=== PATIENT | female | born 1995 | race American Indian/Alaskan Native ===

== ENCOUNTER 2016-09-19 18:41 | Inpatient (IN) | payer MEDICAID ==
[2016-09-19 19:28] LABS: Bilirubin,Urine NEG (Negative); Blood,Urine NEG (Negative); Ketones,Urine TR mg/dL (Negative); Leukocyte Esterase,Urine NEG (Negative); Mucus,Urine FEW /HPF; Nitrite,Urine NEG (Negative); Urobilinogen,Urine < 2.0 mg/dL (<2.0)
[2016-09-19] MEDS ORDERED: NACL 0.9% 1000 ML 1,000 ML IV ONE (19:38)
[2016-09-19 20:48] LABS: Basophils % (Auto) 0.4 % (0.0-1.8); Eosinophils % (Auto) 1.1 % (0.0-4.3); Hematocrit 31.5 % (30.3-42.9); Mean Corpuscular HGB Conc 32 % (30-34); Mean Corpuscular Volume 75 fl (79-97); Platelet Count 260 K/mm3 (140-440); Red Blood Count 4.21 M/mm3 (3.65-5.03); Red Cell Distribution Width 15.3 % (13.2-15.2); White Blood Count 5.5 K/mm3 (4.5-11.0)
[2016-09-19 20:49] LABS: Mean Corpuscular Hemoglobin 24 pg (28-32)
[2016-09-19 20:53] LABS: Alanine Aminotransferase 13 units/L (7-56); Albumin/Globulin Ratio 0.9 %; Alkaline Phosphatase 95 units/L (35-129); Anion Gap 19 mmol/L; Bilirubin,Total 0.2 mg/dL (0.1-1.2); Blood Urea Nitrogen 10 mg/dL (7-17); Carbon Dioxide 20 mmol/L (22-30); Chloride 102.3 mmol/L (98-107); Glucose 180 mg/dL (65-100); Potassium 4.3 mmol/L (3.6-5.0); Sodium 137 mmol/L (137-145); Total Protein 6.3 g/dL (6.3-8.2)
[2016-09-19] MEDS ORDERED: COLACE PO PRN (20:56)
[2016-09-19] MEDS ORDERED: TYLENOL PO PRN (20:56)
--- NOTE | 2016-09-19 21:16 | History and Physical Report ---
History of Present Illness Date of examination: 09/19/16 Chief complaint: patient c/o pain History of present illness: This is a 21 yo EDC 10/30/16 at 34+1 weeks comes into triage c/o pain. originally feeling pain in abdomen. no leaking no vb and good fm. Her course includes 1. large for gestational age 2. Morbid obesity 3. Hypothyroidism 4. pregestational diabetes 5. 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 denies: alcohol abuse (occasional drinker ) - Obstetrical History Expected Date of Delivery: 10/30/16 Actual Gestation: 34 Week(s) 1 Day(s) : 1 Para: 0 Hx # Term Pregnancies: 0 Number of Pregnancies: 0 Spontaneous Abortions: 0 Induced : 0 Number of Living Children: 0 Medications and Allergies Allergies Allergy/AdvReac Type Severity Reaction Status Date / Time No Known Allergies Allergy Verified 09/19/16 18:49 Home Medications Medication Instructions Recorded Confirmed Last Taken Type Vit-Fe Fumar-FA [ 1 tab PO QDAY 09/19/16 09/19/16 09/19/16 09: 00 History Vitamin] 1 Ranitidine HCl [Acid Control] 150 mg PO BID PRN 09/19/16 09/19/16 09/19/16 09: 00 History 1 Active Meds: Active Medications Acetaminophen (Tylenol) 650 mg PO Q4H PRN PRN Reason: Pain MILD(1-3)/Fever >100.5/BETTENCOURT Docusate Sodium (Colace) 100 mg PO Q12H PRN PRN Reason: Constipation Multivitamins/Iron/Calcium ( Vitamin) 1 each PO QDAY BEN Review of Systems All systems: negative Constitutional: weight gain (50+ pounds) Eyes: deferred Ears, nose, mouth and throat: deferred Respiratory: no shortness of breath, no dyspnea on exertion Breasts: deferred Gastrointestinal: abdominal pain, no nausea, no vomiting Genitourinary: no leakage of fluid Rectal Exam: deferred Integumentary: deferred - Vital Signs Vital signs: Vital Signs Pulse BP Pulse Ox 166 H 133/81 100 09/19/16 19:15 09/19/16 19:15 09/19/16 19:15 Temp Pulse Resp BP Pulse Ox 98.7 F 103 H 133/81 100 09/19/16 20:00 09/19/16 20:58 09/19/16 19:15 09/19/16 20:58 - Physical Exam Breasts: Positive: deferred Cardiovascular: Regular rate, Normal S1, Normal S2 Lungs: Positive: Clear to auscultation, Normal air movement Abdomen: Positive: normal appearance, soft, normal bowel sounds. Negative: distention, tenderness Genitourinary (Female): Positive: normal external genitalia, normal perenium Vulva: both: normal Uterus: Positive: enlarged Anus/Rectum: Positive: normal perianal skin Extremities: Positive: normal Deep Tendon Reflex Grade: Normal +2 - Obstetrical FHR: category 1 Results Result Diagrams: 09/19/16 20:15 09/19/16 20:15 Abnormal lab results 09/19/16 09/19/16 09/19/16 Range/Units 19:38 20:15 20:15 Hgb 10.0 L (10.1-14.3) gm/dl MCV 75 L (79-97) fl MCH 24 L (28-32) pg RDW 15.3 H (13.2-15.2) % Carbon Dioxide 20 L (22-30) mmol/L Creatinine 0.5 L (0.7-1.2) mg/dL Glucose 180 H (65-100) mg/dL POC Glucose 194 H (70-105) Albumin 3.0 L (3.9-5) g/dL All other labs normal. Assessment and Plan 21 yo at 34 weeks admitted for 24 hrs admit for elevated glucose, obesity, tachycardia, and non compliance 1. IV hydration -resolving tachycardia 2. labs CBC, cmp, thyroid panel, hgba1c 3. assessment US with BPP 4. continuous monitoring 5. consult to county home demonstration agent for diabetes 6. FS q2 7. Diabetic diet 2200 ADA 8. consult to medicine 9. consult to [facility] in am
[2016-09-19] MEDS ORDERED: D50W (25GM) IV PRN (21:36)
--- NOTE | 2016-09-19 21:40 | Consultation ---
History of Present Illness - Reason for Consult Consult date: 09/19/16 gestational diabetes mellitus, hypothyroidism Requesting physician: HOLLI LEMUS - History of Present Illness 21-year-old female presented CLAIMS REPRESENTATIVE for abdominal and back pain. She is in her third trimester . Patient stated she was diagnosed with borderline diabetes in the clinic. Patient didn't know any medical condition but on the chart but stated that hypothyroidism. REVIEW OF SYSTEMS: GENERAL: no weight change, no fatigue, no fever HEAD: no head ache EYES: no blurry vision, no acute visual loss EARS: no hearing loss, no discharge, no earache NOSE: no stuffiness, no sneezing, no discharge MOUTH, THROAT AND NECK: no bleeding gums, no sore throat, no swollen neck CARDIAC: no palpitations, no dyspnea on exertion, no orthopnea, no PND, no edema , no chest pain RESPIRATORY: no shortness of breath, no wheeze, no cough, no sputum, no hemoptysis, no asthma GI: no decreased appetite, no nausea, no vomiting, no dysphagia, no diarrhea, no constipation, + abdominal pain URINARY: no change in frequency, no urgency, no polyuria, no hematuria, no incontinence MUSCULOSKELETAL: no muscle weakness, no pain, no joint stiffness NEUROLOGIC: no loss of sensation/numbness, no tingling, no tremors, no weakness/ paralysis HEMATOLOGIC: no anemia, no easy bruising SKIN: no rashes ENDOCRINE: no heat/cold intolerance, no polyuria, no polydipsia, no thyroid problems, no diabetes PSYCHIATRIC: no anxiety, no depression, no suicidal ideations Past History Past Medical History: diabetes, hypothyroidism Past Surgical History: No surgical history Social history: single, smoking (former). denies: alcohol abuse (occasional drinker ) Family history: no significant family history Medications and Allergies Allergies Allergy/AdvReac Type Severity Reaction Status Date / Time No Known Allergies Allergy Verified 09/19/16 18:49 Home Medications Medication Instructions Recorded Confirmed Last Taken Type Vit-Fe Fumar-FA [ 1 tab PO QDAY 09/19/16 09/19/16 09/19/16 09: 00 History Vitamin] 1 Ranitidine HCl [Acid Control] 150 mg PO BID PRN 09/19/16 09/19/16 09/19/16 09: 00 History 1 Active Meds: Active Medications Acetaminophen (Tylenol) 650 mg PO Q4H PRN PRN Reason: Pain MILD(1-3)/Fever >100.5/BETTENCOURT Docusate Sodium (Colace) 100 mg PO Q12H PRN PRN Reason: Constipation Multivitamins/Iron/Calcium ( Vitamin) 1 each PO QDAY BEN Exam - Physical Exam Narrative exam: Not in cardiopulmonary distress. The patient appeared well nourished and normally developed. Vital signs as documented. Head exam is unremarkable. No scleral icterus . Neck is without jugular venous distension, thyromegaly, or carotid bruits. Lungs are clear to auscultation. Cardiac exam reveals regular rate and Rhythm. First and second heart sounds normal. No murmurs, rubs or gallops. Abdominal exam reveals normal bowel sounds, no masses, positive heart sound. Extremities mild ankle edema. 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 No focal weakness. - Constitutional Vitals: Temp Pulse Resp BP Pulse Ox 98.7 F 112 H 126/85 100 09/19/16 20:00 09/19/16 21:23 09/19/16 21:09 09/19/16 21:23 Results - Labs CBC & Chem 7: 09/19/16 20:15 09/19/16 20:15 Labs: Abnormal lab results 09/19/16 09/19/16 09/19/16 Range/Units 19:38 20:15 20:15 Hgb 10.0 L (10.1-14.3) gm/dl MCV 75 L (79-97) fl MCH 24 L (28-32) pg RDW 15.3 H (13.2-15.2) % Carbon Dioxide 20 L (22-30) mmol/L Creatinine 0.5 L (0.7-1.2) mg/dL Glucose 180 H (65-100) mg/dL POC Glucose 194 H (70-105) Albumin 3.0 L (3.9-5) g/dL Assessment and Plan Gestational DM - will put her on SSI - F/U A1c - Will do accu check and will start basal insulin based on the results Hx of hypothyroidism - follow with thyroid panel and will manage accordingly
--- NOTE | 2016-09-19 21:44 | Event Note ---
Date: 09/19/16 I have calculated her insulin dose in the third trimester using 0.9 U/Kg Total of 94 U based on 105 kg AM dose NPH 41 and R 20 PM dose NPH 15 and R 15
--- NOTE | 2016-09-20 07:12 | Admit Criteria Form ---
Admission Criteria Documentation: DIABETES IN Clinical Indications for Admission to Inpatient Care (Place "X" for any and all applicable criteria): Admission is indicated by presence of ALL of the following(1)(2)(3): [X]I. Diabetes is uncontrolled or needs urgent intervention as indicated by ANY ONE of the following: [ ]a) Ketoacidosis [ ]b) Hyperglycemia associated with volume depletion [X]c) Persistent hyperglycemia, unresponsive to outpatient intervention [ ]d) Vomiting not controlled by outpatient therapy [ ]e) Rapid initiation of metabolic control needed to improve maternal and outcome [ ]f) Hypoglycemia not readily reversed by outpatient or emergency department care [ ]II. Management at other levels of care (See General Criteria: Observation Care) is not feasible because of ANY ONE of the following: [ ]a) Condition was not adequately corrected with treatment at other levels of care. [ ]b) Treatment at other levels of care is not appropriate because of condition severity (eg, hyperosmolar coma). Extended stay beyond goal length of stay may be needed for(1)(3)(18): [ ]a) Underlying infection [ ]b) Unstable glycemic control, particularly in patients with pre-existing diabetes [ ]c) Continued hypovolemia, acidosis, or electrolyte correction(17) [ ]d) Persistent nausea and vomiting(2) [ ]e) Associated obstetric comorbidities (eg, labor, preeclampsia)(19) (20) The original [facility] content created by [facility] has been revised. The portions of the content which have been revised are identified through the use of italic text or in bold, and [facility] has neither reviewed nor approved the modified material. All other unmodified content is copyright [facility] [employer]. Please see references footnoted in the original [facility] edition 2016 Admission Criteria Met: Yes
[2016-09-20] MEDS ORDERED: PRENATAL VITAMIN PO SCH (10:00)
--- NOTE | 2016-09-20 13:50 | Progress Note ---
Assessment and Plan 21 yo at 34 weeks admitted for 24 hrs admit for elevated glucose, obesity, tachycardia, and non compliance 1. patient currently on insulin 2. await [facility] consult 3. await DM consultation 4. will consider d/c home tonight 5. resolved tachy with fluids Subjective - Subjective Date of service: 09/20/16 Principal diagnosis: obesity hypothyroidism, GDM Interval history: This is a 21 yo EDC 10/30/16 at 34+1 weeks comes into triage c/o pain. originally feeling pain in abdomen. no leaking no vb and good fm. Her course includes 1. large for gestational age 2. Morbid obesity 3. Hypothyroidism 4. pregestational diabetes 5. LSIL ob labs: B+ antibody neg H/H 13.8/41.4 pap lsil Rubella IMM RPR NR urine culture : + hep neg HIV neg PLT 312 HGB Electrophoresis AA Albaro neg chlam neg US 04/02/16 9.6 weeks single IUP MSAFP neg antoamy nl H//H 10.7/33.9 DM 168 PLT 307 09/06/16 ALLAN 10/30/16 EFW 4 poounds and 8 oz 52% flluid 13.62 closed cervix posterior placenta grade 3 Patient reports: movement normal, no new complaints, no loss of fluid, no vaginal bleeding, no contractions Objective - Vital Signs Vital Signs: Vital Signs - 12hr 09/20/16 09/20/16 09/20/16 01:47 01:48 01:52 Temperature Pulse Rate 94 H 96 H 95 H Respiratory Rate Blood Pressure 126/76 O2 Sat by Pulse 100 100 Oximetry 09/20/16 09/20/16 09/20/16 01:57 01:59 02:02 Temperature Pulse Rate 93 H 102 H Respiratory Rate Blood Pressure O2 Sat by Pulse 100 74 L 100 Oximetry 09/20/16 09/20/16 09/20/16 02:07 02:12 02:17 Temperature Pulse Rate 96 H 107 H 92 H Respiratory Rate Blood Pressure 118/61 O2 Sat by Pulse 100 100 100 Oximetry 09/20/16 09/20/16 09/20/16 02:22 02:27 02:32 Temperature Pulse Rate 100 H 90 103 H Respiratory Rate Blood Pressure O2 Sat by Pulse 100 100 100 Oximetry 09/20/16 09/20/16 09/20/16 02:37 02:42 02:47 Temperature Pulse Rate 106 H 90 109 H Respiratory Rate Blood Pressure O2 Sat by Pulse 99 99 100 Oximetry 09/20/16 09/20/16 09/20/16 02:48 02:52 02:57 Temperature Pulse Rate 107 H 89 92 H Respiratory Rate Blood Pressure 136/68 O2 Sat by Pulse 99 99 Oximetry 09/20/16 09/20/16 09/20/16 03:00 03:02 03:07 Temperature 97.6 F Pulse Rate 92 H 108 H Respiratory 20 Rate Blood Pressure O2 Sat by Pulse 100 100 Oximetry 09/20/16 09/20/16 09/20/16 03:12 03:17 03:22 Temperature Pulse Rate 102 H 90 92 H Respiratory Rate Blood Pressure 115/61 O2 Sat by Pulse 99 99 100 Oximetry 09/20/16 09/20/16 09/20/16 03:27 03:32 03:37 Temperature Pulse Rate 94 H 105 H 99 H Respiratory Rate Blood Pressure O2 Sat by Pulse 99 99 100 Oximetry 09/20/16 09/20/16 09/20/16 03:42 03:47 03:52 Temperature Pulse Rate 113 H 86 89 Respiratory Rate Blood Pressure 130/71 O2 Sat by Pulse 99 100 100 Oximetry 09/20/16 09/20/16 09/20/16 03:57 04:02 04:07 Temperature Pulse Rate 96 H 99 H 109 H Respiratory Rate Blood Pressure O2 Sat by Pulse 100 100 100 Oximetry 09/20/16 09/20/16 09/20/16 04:12 04:17 04:22 Temperature Pulse Rate 95 H 95 H 94 H Respiratory Rate Blood Pressure 107/60 O2 Sat by Pulse 100 100 100 Oximetry 09/20/16 09/20/16 09/20/16 04:27 04:32 04:37 Temperature Pulse Rate 104 H 101 H 88 Respiratory Rate Blood Pressure O2 Sat by Pulse 100 100 100 Oximetry 09/20/16 09/20/16 09/20/16 04:42 04:47 04:50 Temperature Pulse Rate 98 H 90 96 H Respiratory Rate Blood Pressure 103/57 O2 Sat by Pulse 98 98 82 L Oximetry 09/20/16 09/20/16 09/20/16 04:52 04:57 05:02 Temperature Pulse Rate 104 H 91 H 104 H Respiratory Rate Blood Pressure O2 Sat by Pulse 100 100 100 Oximetry 09/20/16 09/20/16 09/20/16 05:07 05:12 05:17 Temperature Pulse Rate 89 91 H 88 Respiratory Rate Blood Pressure 104/53 O2 Sat by Pulse 99 100 100 Oximetry 09/20/16 09/20/16 09/20/16 05:22 05:27 05:32 Temperature Pulse Rate 93 H 87 88 Respiratory Rate Blood Pressure O2 Sat by Pulse 100 100 100 Oximetry 09/20/16 09/20/16 09/20/16 05:37 05:42 05:47 Temperature Pulse Rate 86 81 87 Respiratory Rate Blood Pressure 126/58 O2 Sat by Pulse 99 98 98 Oximetry 09/20/16 09/20/16 09/20/16 05:52 05:57 06:31 Temperature Pulse Rate 80 91 H 100 H Respiratory Rate Blood Pressure O2 Sat by Pulse 98 98 89 Oximetry 09/20/16 09/20/16 09/20/16 06:36 06:41 06:43 Temperature Pulse Rate 94 H 97 H 99 H Respiratory Rate Blood Pressure O2 Sat by Pulse 100 100 90 Oximetry 09/20/16 09/20/16 09/20/16 06:46 06:51 06:56 Temperature Pulse Rate 88 91 H 91 H Respiratory Rate Blood Pressure O2 Sat by Pulse 100 100 100 Oximetry 09/20/16 09/20/16 09/20/16 07:01 07:06 07:11 Temperature Pulse Rate 92 H 84 85 Respiratory Rate Blood Pressure O2 Sat by Pulse 100 100 100 Oximetry 09/20/16 09/20/16 09/20/16 07:16 07:21 07:26 Temperature Pulse Rate 90 82 92 H Respiratory Rate Blood Pressure O2 Sat by Pulse 100 100 100 Oximetry 09/20/16 09/20/16 09/20/16 07:30 07:31 07:36 Temperature Pulse Rate 92 H 91 H 90 Respiratory Rate Blood Pressure 108/60 O2 Sat by Pulse 100 100 Oximetry 09/20/16 09/20/16 09/20/16 07:41 07:46 07:51 Temperature Pulse Rate 108 H 90 122 H Respiratory Rate Blood Pressure O2 Sat by Pulse 100 100 99 Oximetry 09/20/16 09/20/16 09/20/16 07:56 08:01 08:06 Temperature Pulse Rate 89 108 H 94 H Respiratory Rate Blood Pressure O2 Sat by Pulse 99 100 100 Oximetry 09/20/16 09/20/16 09/20/16 08:11 08:16 08:21 Temperature Pulse Rate 91 H 94 H 93 H Respiratory Rate Blood Pressure O2 Sat by Pulse 100 100 100 Oximetry 09/20/16 11:49 Temperature Pulse Rate 104 H Respiratory Rate Blood Pressure 118/72 O2 Sat by Pulse Oximetry - Exam Breasts: deferred, normal Cardiovascular: Regular rate, Normal S1, Normal S2 Lungs: Clear to auscultation, Normal air movement Abdomen: Present: normal appearance, soft, normal bowel sounds Uterus: Present: normal, firm FHR: category 1 - Labs Labs: Abnormal Labs 09/19/16 09/19/16 09/19/16 19:38 20:15 20:15 Hgb 10.0 L MCV 75 L MCH 24 L RDW 15.3 H Carbon Dioxide 20 L Creatinine 0.5 L Glucose 180 H POC Glucose 194 H Hemoglobin A1c Albumin 3.0 L 09/19/16 09/20/16 09/20/16 21:38 01:00 09:54 Hgb MCV MCH RDW Carbon Dioxide Creatinine Glucose POC Glucose 135 H 120 H Hemoglobin A1c 6.1 H Albumin Laboratory Results - last 24 hr 09/19/16 09/19/16 09/19/16 19:00 19:38 20:15 WBC 5.5 RBC 4.21 Hgb 10.0 L Hct 31.5 MCV 75 L MCH 24 L MCHC 32 RDW 15.3 H Plt Count 260 Lymph % (Auto) 22.1 [place] % (Auto) 7.1 Eos % (Auto) 1.1 Baso % (Auto) 0.4 Lymph # 1.2 [place] # 0.4 Eos # 0.1 Baso # 0.0 Seg Neutrophils % 69.3 Seg Neutrophils # 3.8 Sodium Potassium Chloride Carbon Dioxide Anion Gap BUN Creatinine Estimated GFR BUN/Creatinine Ratio Glucose POC Glucose 194 H Hemoglobin A1c Calcium Total Bilirubin AST ALT Alkaline Phosphatase Total Protein Albumin Albumin/Globulin Ratio TSH Free T4 Urine Color Shereen Urine Turbidity Clear Urine pH 6.0 Urine Protein 30 mg/dl Urine Glucose (UA) >=500 Urine Ketones Tr Urine Blood Neg Urine Nitrite Neg Urine Bilirubin Neg Urine Urobilinogen < 2.0 Ur Leukocyte Esterase Neg Urine WBC (Auto) 2.0 Urine RBC (Auto) 15.0 U Epithel Cells (Auto) 2.0 Calcium Oxalate Crystal 3+ Urine Mucus Few Blood Type Antibody Screen 09/19/16 09/19/16 09/19/16 20:15 21:38 21:38 WBC RBC Hgb Hct MCV MCH MCHC RDW Plt Count Lymph % (Auto) [place] % (Auto) Eos % (Auto) Baso % (Auto) Lymph # [place] # Eos # Baso # Seg Neutrophils % Seg Neutrophils # Sodium 137 Potassium 4.3 Chloride 102.3 Carbon Dioxide 20 L Anion Gap 19 BUN 10 Creatinine 0.5 L Estimated GFR > 60 BUN/Creatinine Ratio 20.00 Glucose 180 H POC Glucose Hemoglobin A1c 6.1 H Calcium 9.0 Total Bilirubin 0.2 AST 21 ALT 13 Alkaline Phosphatase 95 Total Protein 6.3 Albumin 3.0 L Albumin/Globulin Ratio 0.9 TSH 1.890 Free T4 0.96 Urine Color Urine Turbidity Urine pH Urine Protein Urine Glucose (UA) Urine Ketones Urine Blood Urine Nitrite Urine Bilirubin Urine Urobilinogen Ur Leukocyte Esterase Urine WBC (Auto) Urine RBC (Auto) U Epithel Cells (Auto) Calcium Oxalate Crystal Urine Mucus Blood Type Antibody Screen 09/19/16 09/20/16 09/20/16 21:39 01:00 06:00 WBC RBC Hgb Hct MCV MCH MCHC RDW Plt Count Lymph % (Auto) [place] % (Auto) Eos % (Auto) Baso % (Auto) Lymph # [place] # Eos # Baso # Seg Neutrophils % Seg Neutrophils # Sodium Potassium Chloride Carbon Dioxide Anion Gap BUN Creatinine Estimated GFR BUN/Creatinine Ratio Glucose POC Glucose 135 H 80 Hemoglobin A1c Calcium Total Bilirubin AST ALT Alkaline Phosphatase Total Protein Albumin Albumin/Globulin Ratio TSH Free T4 Urine Color Urine Turbidity Urine pH Urine Protein Urine Glucose (UA) Urine Ketones Urine Blood Urine Nitrite Urine Bilirubin Urine Urobilinogen Ur Leukocyte Esterase Urine WBC (Auto) Urine RBC (Auto) U Epithel Cells (Auto) Calcium Oxalate Crystal Urine Mucus Blood Type B POSITIVE Antibody Screen Negative 09/20/16 09:54 WBC RBC Hgb Hct MCV MCH MCHC RDW Plt Count Lymph % (Auto) [place] % (Auto) Eos % (Auto) Baso % (Auto) Lymph # [place] # Eos # Baso # Seg Neutrophils % Seg Neutrophils # Sodium Potassium Chloride Carbon Dioxide Anion Gap BUN Creatinine Estimated GFR BUN/Creatinine Ratio Glucose POC Glucose 120 H Hemoglobin A1c Calcium Total Bilirubin AST ALT Alkaline Phosphatase Total Protein Albumin Albumin/Globulin Ratio TSH Free T4 Urine Color Urine Turbidity Urine pH Urine Protein Urine Glucose (UA) Urine Ketones Urine Blood Urine Nitrite Urine Bilirubin Urine Urobilinogen Ur Leukocyte Esterase Urine WBC (Auto) Urine RBC (Auto) U Epithel Cells (Auto) Calcium Oxalate Crystal Urine Mucus Blood Type Antibody Screen
[2016-09-20 14:39] VITALS: BP 110/61
--- NOTE | 2016-09-20 15:08 | Ultrasound Report ---
Gestation: Diaz Position: Cephalic Amniotic Fluid: TONYA = 10.2 cm, normal Placenta: Placental Grade: Posterior Heart Rate: 166 BPM Cervical length: 3.8 cm (Normal > 3 cm) NEUROANATOMY VISUALIZED: Choroid Plexus Cisterna Magnum Cerebellum Lateral Ventricle ANATOMY VISUALIZED: Stomach Kidneys Bladder Diaphragm 4 Chamber Heart Heart 3 Vessel Cord Abd. Cord Insert SPINE VISUALIZED: Longitudinal Transverse AP Limited spine due to position The following are not demonstrated due to maternal body habitus or lie: Four-chamber heart, cord insertion. BPD: 8.38 cm = 33 w 5 d HC: 20.1 to cm = 33 w 3 d AC: 31.5 cm = 35 w 3 d FL: 7.0 cm = 36 w one d HC/AC Ratio: 0.96 Cephalic Index: 82.5 Estimated Weight: 2622 grams LMP: 01/24/16 Clinical age = 34 w one d EDC: 10/30/16 US Gest. Age = 34 w 5 d EDC: 10/26/16
--- NOTE | 2016-09-20 15:21 | Consultation ---
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 History: trichomonas Family/Genetic History: diabetes, hypertension Social history: no significant social history - Obstetrical History Expected Date of Delivery: 10/30/16 Actual Gestation: 34 Week(s) 2 Day(s) : 1 Para: 0 Hx # Term Pregnancies: 0 Number of Pregnancies: 0 Spontaneous Abortions: 0 Induced : 0 Number of Living Children: 0 Medications and Allergies Allergies Allergy/AdvReac Type Severity Reaction Status Date / Time No Known Allergies Allergy Verified 09/19/16 18:49 Home Medications Medication Instructions Recorded Confirmed Last Taken Type Vit-Fe Fumar-FA [ 1 tab PO QDAY 09/19/16 09/19/16 09/19/16 09: 00 History Vitamin] 1 Ranitidine HCl [Acid Control] 150 mg PO BID PRN 09/19/16 09/19/16 09/19/16 09: 00 History 1 Active Meds: Active Medications Acetaminophen (Tylenol) 650 mg PO Q4H PRN PRN Reason: Pain MILD(1-3)/Fever >100.5/BETTENCOURT Dextrose (D50w (25gm)) 50 ml IV PRN PRN PRN Reason: Hypoglycemia Docusate Sodium (Colace) 100 mg PO Q12H PRN PRN Reason: Constipation Insulin Human NPH (Novolin N) 41 unit SUB-Q QAMDIAB [facility] Last Admin: 09/20/16 08:36 Dose: Not Given Insulin Human NPH (Novolin N) 15 unit SUB-Q QPMDIAB [facility] Last Admin: 09/19/16 23:12 Dose: 15 unit Insulin Human Regular (Novolin R) 0 units SUB-Q QHS [facility] PRN Reason: Protocol Insulin Human Regular (Novolin R) 20 units SUB-Q QAMDIAB [facility] Last Admin: 09/20/16 08:36 Dose: Not Given Insulin Human Regular (Novolin R) 15 units SUB-Q QPMDIAB [facility] Last Admin: 09/19/16 23:12 Dose: 15 units Multivitamins/Iron/Calcium ( Vitamin) 1 each PO QDAY [facility] Last Admin: 09/20/16 09:30 Dose: 1 each - Vital Signs Vital signs: Vital Signs Pulse BP Pulse Ox 166 H 133/81 100 03/22/17 19:15 09/19/16 19:15 09/19/16 19:15 Temp Pulse Resp BP Pulse Ox 97.6 F 100 H 20 110/61 100 09/20/16 03:00 09/20/16 14:36 09/20/16 03:00 09/20/16 14:36 09/20/16 08:21 - Physical Exam Breasts: Positive: deferred - Obstetrical FHR: category 1 Uterine Contraction Pattern: Absent Uterine Tone Measurement Phase: Resting Results Result Diagrams: 09/19/16 20:15 09/19/16 20:15 Abnormal lab results 09/19/16 09/19/16 09/19/16 Range/Units 19:38 20:15 20:15 Hgb 10.0 L (10.1-14.3) gm/dl MCV 75 L (79-97) fl MCH 24 L (28-32) pg RDW 15.3 H (13.2-15.2) % Carbon Dioxide 20 L (22-30) mmol/L Creatinine 0.5 L (0.7-1.2) mg/dL Glucose 180 H (65-100) mg/dL POC Glucose 194 H (70-105) Hemoglobin A1c (4-6) % Albumin 3.0 L (3.9-5) g/dL 09/19/16 09/20/16 09/20/16 Range/Units 21:38 01:00 09:54 Hgb (10.1-14.3) gm/dl MCV (79-97) fl MCH (28-32) pg RDW (13.2-15.2) % Carbon Dioxide (22-30) mmol/L Creatinine (0.7-1.2) mg/dL Glucose (65-100) mg/dL POC Glucose 135 H 120 H (70-105) Hemoglobin A1c 6.1 H (4-6) % Albumin (3.9-5) g/dL 09/20/16 Range/Units 14:11 Hgb (10.1-14.3) gm/dl MCV (79-97) fl MCH (28-32) pg RDW (13.2-15.2) % Carbon Dioxide (22-30) mmol/L Creatinine (0.7-1.2) mg/dL Glucose (65-100) mg/dL POC Glucose 130 H (70-105) Hemoglobin A1c (4-6) % Albumin (3.9-5) g/dL All other labs normal. Ultrasound: report reviewed (TONYA normal at 10.2cm, growth normal 2622g) Assessment and Plan Assessment: 1. 21 year old, at 34.1 weeks single gestation 2. growth is appropriate 3. Reported pregestational diabetes with elevated blood sugar at OB office 4. HbA1c 6.1% 5. Controlled blood sugars today: fastin, post breakfast 120, post lunch 130 6. Morbid obesity 7. History of hypothyroidism 8. Reassuring FHR tracing Plan: 1. Would recommend discharge home with weekly follow up at [facility] 2. Diabetic teaching-referral to [facility] completed 3. 2200 calorie ADA diet 4. 4 times daily home glucose monitoring: fasting and 2 hour post prandial 5. Patient to report elevated home glucose 6. Daily kick counts 7. Document a TSH
--- NOTE | 2016-09-20 15:27 | Ultrasound Report ---
BIOPHYSICAL PROFILE: 2 - breathing movements 2 - movements 2 - posture and tone 2 - Qualitative amniotic fluid volume 8 - TOTAL SCORE OF POSSIBLE 8 Heart Rate (bpm) 166
--- NOTE | 2016-09-20 17:57 | Event Note ---
Date: 09/20/16 Patient's medical records and labs reviewed , patient's blood sugars aren't well -controlled I discussed the case with patient's nurse and the nurse practitioner, they did not need hospitalists consultation at this point. We will sign off, Please reconsult us if needed. Thank you
--- NOTE | 2016-09-20 18:11 | Discharge Summary ---
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 Notified:: ERNIE Phone number called:: [phone] Was contact made?: Yes If yes, spoke with:: ERNIE Time called:: 13:48 09/19/16 20:57 Consult to Dietitian/Nutrition [CONS] Routine Physician Instructions: Reason For Exam: 35 weeks and diabetic Reason for Consult: Diet education Primary care physician: HOLLI LEMUS MD Hospitalization Reason for admission: observation Delivery: other (TACHYCARDIA, UNCONTROLLED GLUCOSE, NON COMPLIANCE ) Discharge diagnosis: other (ptl, gdm OBESITY ) Condition at discharge: Good Disposition: DISCHARGED TO HOME OR SELFCARE Plan - Provider Discharge Summary Activity: routine Diet: routine Instructions: other (KEEP SCHEULED APPT WITH [facility]) Additional instructions: [] Smoking cessation referral if applicable(refer to patient education folder for contact #) [] Refer to [facility]'s [facility] Booklet Call your doctor immediately for: * Fever > 100.5 * Heavy vaginal bleeding ( >1 pad per hour) * Severe persistent headache * Shortness of breath * Reddened, hot, painful area to leg or breast * Drainage or odor from incision. * Keep incision clean and dry at all times and follow doctor's instructions regarding bathing/showering - Follow up plan Follow up: HOLLI LEMUS MD [Primary Care Provider] - 7 Days
--- NOTE | 2016-09-20 18:13 | Event Note ---
Date: 09/20/16 ARLIN TO BE DISCHARGED HOME WITH THESE INSTRUCTIONS [facility] APPT REFERRAL FOR DIABETIC TEACHING 2200 calorie ADA diet GLUCOMOTER CHECK CALL [facility] WITH GLUCOSE CHECKS OR OUR OFFICE . DEUCE AMADOR
== END 2016-09-20 20:01 | disposition home or self-care (01) | DRG 781 ==
LOC: TRG 18:41 → LD 22:00 → OBSVTOIN 09-20 09:39
PROVIDERS: ADMIT Obstetrics & Gynecology; ATTEND Obstetrics & Gynecology
DX: O99.283 Endocrine, nutritional and metabolic diseases complicating pregnancy, third trimester (principal); E03.9 Hypothyroidism, unspecified; O36.63X0 Maternal care for excessive fetal growth, third trimester, not applicable or unspecified; O24.414 Gestational diabetes mellitus in pregnancy, insulin controlled; E66.01 Morbid (severe) obesity due to excess calories; O99.213 Obesity complicating pregnancy, third trimester; O76 Abnormality in fetal heart rate and rhythm complicating labor and delivery; Z3A.34 34 weeks gestation of pregnancy; Z68.41 Body mass index [BMI] 40.0-44.9, adult; Z87.891 Personal history of nicotine dependence; Z91.19 Patient's noncompliance with other medical treatment and regimen
CPT/HCPCS: 36415; 59025; 76805; 76819; 80053; 81001; 82962; 83036; 84439; 84443; 85025; 86850; 86900; 86901; G0378; J1815; J7030

== ENCOUNTER 2016-10-09 19:32 | Outpatient (CLI) | payer MEDICAID ==
[2016-10-09 20:22] VITALS: BP 135/74
== END 2016-10-09 20:58 | disposition home or self-care (01) ==
LOC: TRG 19:32
PROVIDERS: ATTEND Obstetrics & Gynecology
DX: O47.1 False labor at or after 37 completed weeks of gestation (principal); Z3A.37 37 weeks gestation of pregnancy
CPT/HCPCS: 59025

== ENCOUNTER 2016-10-10 11:30 | Outpatient (CLI) | payer MEDICAID ==
[2016-10-10 11:46] VITALS: BP 128/69
[2016-10-10] MEDS ORDERED: VISTARIL ONE (17:27)
[2016-10-10] MEDS ORDERED: VISTARIL PO PRN (17:28)
== END 2016-10-10 17:34 | disposition home or self-care (01) ==
LOC: TRG 11:30
PROVIDERS: ATTEND Obstetrics & Gynecology
DX: O47.1 False labor at or after 37 completed weeks of gestation (principal); Z3A.37 37 weeks gestation of pregnancy
CPT/HCPCS: 59025; Q0177